=== PATIENT | female | born 1975 | race Caucasian/White ===

== ENCOUNTER → 2018-08-24 | Outpatient (CLI) | payer BC ==
[~2018-08-24] MED LIST: LEVAQUIN500 MG PO; TYLENOL WITH C1 EACH PO
--- NOTE | 2018-08-24 09:08 | Diagnostic Imaging Report ---
FLUOROSCOPIC BARIUM SWALLOW WITH UPPER GI HISTORY: GERD AGRICULTURAL ENGINEERING TEACHER: Rosemarie More MD Comparison: None. Procedure: Double contrast barium swallow and upper GI fluoroscopic exam was performed using thick and thin oral barium and effervescent crystals. Radiation Exposure: Fluoroscopy Time: 1 minute Radiation dose: 14.2 mGy DISCUSSION: ESOPHAGUS: Motility: Within normal limits. Unremarkable. Mucosa: Unremarkable. Distensibility: Normal. GASTROESOPHAGEAL JUNCTION: Small hiatal hernia. GASTROESOPHAGEAL REFLUX: Severe spontaneous inducible gastroesophageal reflux above the level of the aortic arch. STOMACH: Normally distensible and demonstrates normal contours and mucosal pattern. DUODENUM/PROXIMAL SMALL BOWEL: Unremarkable in appearance. IMPRESSION: Severe spontaneous gastroesophageal reflux. Small hiatal hernia. Signed by: Dr. Rosemarie More MD on 08/24/2018 9:04 AM
--- NOTE | 2018-08-24 09:08 | Diagnostic Imaging Report ---
FLUOROSCOPIC BARIUM SWALLOW WITH UPPER GI HISTORY: GERD HYDROGEN PLANT OPERATIONS MANAGER: Rosemarie More MD Comparison: None. Procedure: Double contrast barium swallow and upper GI fluoroscopic exam was performed using thick and thin oral barium and effervescent crystals. Radiation Exposure: Fluoroscopy Time: 1 minute Radiation dose: 14.2 mGy DISCUSSION: ESOPHAGUS: Motility: Within normal limits. Unremarkable. Mucosa: Unremarkable. Distensibility: Normal. GASTROESOPHAGEAL JUNCTION: Small hiatal hernia. GASTROESOPHAGEAL REFLUX: Severe spontaneous inducible gastroesophageal reflux above the level of the aortic arch. STOMACH: Normally distensible and demonstrates normal contours and mucosal pattern. DUODENUM/PROXIMAL SMALL BOWEL: Unremarkable in appearance. IMPRESSION: Severe spontaneous gastroesophageal reflux. Small hiatal hernia. Signed by: Dr. Rosemarie More MD on 08/24/2018 9:04 AM
== END ==
LOC: DX 07:28
PROVIDERS: ATTEND Surgery
DX: K21.9 Gastro-esophageal reflux disease without esophagitis (principal); K44.9 Diaphragmatic hernia without obstruction or gangrene
CPT/HCPCS: 74220; 74246

== ENCOUNTER 2018-10-11 07:06 | Inpatient (IN) | payer BC ==
[2018-10-09 16:30] LABS: BASOPHILS % 0.2 % (0.0-1.0); EOSINOPHILS # (AUTO) 0.1 (0.0-0.4); EOSINOPHILS % 0.9 % (0.0-6.0); HEMATOCRIT 39.3 % (34.2-44.1); HEMOGLOBIN 13.2 g/dL (12.0-16.0); LYMPHOCYTES # (AUTO) 2.8 (1.0-3.2); LYMPHOCYTES % 33.6 % (18.0-39.1); MEAN CORPUSCULAR HEMOGLOBIN 30.4 pg (28-32); MEAN CORPUSCULAR HGB CONC 33.6 g/dL (31-35); MEAN CORPUSCULAR VOLUME 90.6 fL (81-99); MONOCYTES # (AUTO) 0.5 (0.2-0.8); MONOCYTES % 6.2 % (4.4-11.3); NEUTROPHILS % 58.7 % (38.7-80.0); PLATELET COUNT 285 x10e3/uL (140-360); RED BLOOD COUNT 4.34 x10e6/uL (3.6-5.1); RED CELL DISTRIBUTION WIDTH 12.5 % (11.7-14.4)
[2018-10-09 17:06] LABS: ALANINE AMINOTRANSFERASE 8 IU/L (0-55); ALBUMIN 3.6 g/dL (3.5-5.0); ALKALINE PHOSPHATASE 45 IU/L (40-150); ANION GAP 11.1 mmol/L (8-16); BLOOD UREA NITROGEN 16 mg/dL (7-26); BUN/CREATININE RATIO 21 (6-25); CALCIUM 8.4 mg/dL (8.4-10.2); CARBON DIOXIDE 23 mmol/L (22-29); CHLORIDE 108 mmol/L (98-107); CREATININE, SERUM 0.77 mg/dL (0.57-1.11); EST GLOMERULAR FILTRATION RATE > 60 ML/MIN (60-); GLUCOSE 99 mg/dL (74-118); POTASSIUM 4.1 mmol/L (3.5-5.1); SODIUM 138 mmol/L (136-145)
[~2018-10-11] VITALS: Ht 157.5 cm; Wt 61.2 kg
[~2018-10-11 07:06] MED LIST changes: +PANTOPRAZOLE SO40 MG PO
--- OUTSIDE RECORDS SUMMARY | 2018-10-11 07:07 | XMS REPORT ---
Author Author [facility] Address Unknown Phone Unavailable Care Team Providers Care Apparel Manager Name Role Phone Silver LARSEN Unavailable Unavailable Problems This patient has no known problems. Allergies, Adverse Reactions, Alerts This patient has no known allergies or adverse reactions. Medications This patient has no known medications. Results Test Description Test Time Test Comments Text Results Atomic Results Result Comments BARIUM SWALLOW 2018-08-24 08:44:00 [place] [address] Patient Name: ONEYDA PERRY MR #: [id number] : 1975 Age/Sex: 43/F Req #: [id number] [facility] Physician: Ordered by: EMMY LARSEN MD Report #: [id number] Location: DX Room/Bed: Procedure: [id number] DX/BARIUM SWALLOW Exam Date: 08/24/18 Exam Time: 0815 REPORT STATUS: Signed FLUOROSCOPIC BARIUM SWALLOW WITH UPPER GI HISTORY: GERD FINAL ASSEMBLY INSPECTOR: Gabe Daigle MD Comparison: None. Procedure: Double contrast barium swallow and upper GI fluoroscopic exam was performed using thick and thin oral barium and effervescent crystals. Radiation Exposure: Fluoroscopy Time: 1 minute Radiation dose: 14.2 mGy DISCUSSION: ESOPHAGUS: Motility: Within normal limits. Unremarkable. Mucosa: Unremarkable. Distensibility: Normal. GASTROESOPHAGEAL JUNCTION: Small hiatal hernia. GASTROESOPHAGEAL REFLUX: Severe spontaneous inducible gastroesophageal reflux above the level of the aortic arch. STOMACH: Normally distensible and demonstrates normal contours and mucosal pattern. DUODENUM/PROXIMAL SMALL BOWEL: Unremarkable in appearance. IMPRESSION: Severe spontaneous gastroesophageal reflux. Small hiatal hernia. Signed by: Dr. Gabe Daigle MD on 08/24/2018 9:04 AM Dictated By: GABE DAIGLE MD 3 Transcribed By: SUE on 08/24/18903 COPY TO: EMMY LARSEN MD UPPER GI W/AIR CONTR 2018-08-24 08:44:00 [place] [address] Patient Name: ONEYDA PERRY MR #: [id number] : 1975 Age/Sex: 43/F Req #: [id number] Adm Physician: Ordered by: EMMY LARSEN MD Report #: [id number] Location: DX Room/Bed: Procedure: [id number] DX/UPPER GI W/AIR CONTR Exam Date: 08/24/18 Exam Time: 0815 REPORT STATUS: Signed FLUOROSCOPIC BARIUM SWALLOW WITH UPPER GI HISTORY: GERD FINAL ASSEMBLY INSPECTOR: Gabe Daigle MD Comparison: None. Procedure: Double contrast barium swallow and upper GI fluoroscopic exam was performed using thick and thin oral barium and effervescent crystals. Radiation Exposure: Fluoroscopy Time: 1 minute Radiation dose: 14.2 mGy DISCUSSION: ESOPHAGUS: Motility: Within normal limits. Unremarkable. Mucosa: Unremarkable. Distensibility: Normal. GASTROESOPHAGEAL JUNCTION: Small hiatal hernia. GASTROESOPHAGEAL REFLUX: Severe spontaneous inducible gastroesophageal reflux above the level of the aortic arch. STOMACH: Normally distensible and demonstrates normal contours and mucosal pattern. DUODENUM/PROXIMAL SMALL BOWEL: Unremarkable in appearance. IMPRESSION: Severe spontaneous gastroesophageal reflux. Small hiatal hernia. Signed by: Dr. Gabe Daigle MD on 08/24/2018 9:04 AM Dictated By: GABE DAIGLE MD 3 COPY TO: EMMY LARSEN MD
[2018-10-11] MEDS ORDERED: BUPIVACAINE 0.25%/EPI 30ML SDV INJ ONE (11:05)
[2018-10-11] MEDS ORDERED: ACETAMINOPHEN 1000 MG/100 ML IV PRN (13:30)
[2018-10-11] MEDS: SODIUM CHLORIDE 0.9% 250ML IRRIG IR SCH ×3 (13:30→21:04)
[2018-10-11] MEDS ORDERED: PROMETHAZINE HCL (IM) 25 MG/ML VIAL IV PRN (13:30)
[2018-10-11] MEDS ORDERED: HYDROMORPHONE 1MG/1ML INJ IV PRN (13:30)
[2018-10-11] MEDS ORDERED: FENTANYL CITRATE/PF 100MCG/2 ML INJ ONE ×2 (13:56→18:19)
[2018-10-11] MEDS ORDERED: PROMETHAZINE 12.5MG/ NACL 0.9% 50 ML IV PRN (14:00)
[2018-10-11] MEDS ORDERED: ONDANSETRON HCL INJ 2MG/ML 2ML 2 MG/ML VIAL ONE ×2 (14:24→18:00)
[2018-10-11] MEDS ORDERED: METOCLOPRAMIDE HCL 10 MG/2ML VIAL ONE (14:24)
--- NOTE | 2018-10-11 15:19 | Operative Report ---
DATE OF PROCEDURE: 10/11/2018 SURGEON: Artemio Juan MD PREOPERATIVE DIAGNOSIS: Gastroesophageal reflux disease. POSTOPERATIVE DIAGNOSIS: Gastroesophageal reflux disease. OPERATION PERFORMED: Laparoscopic Shaheen fundoplication. AGILE SCRUM MASTER: Dr. Musa Juan and ANIRUDH Eller. ANESTHESIA: General. COMPLICATIONS: None. ESTIMATED BLOOD LOSS: 100 mL. DESCRIPTION OF PROCEDURE: With the patient lying in bed in the supine position under good general endotracheal anesthesia, the abdomen was prepped with Betadine solution and draped in the usual manner. A Veress needle was introduced into the left upper abdomen and pneumoperitoneum was established without any difficulty. An 11 mm trocar was placed in the left mid abdomen and a 10 mm videolaparoscope was placed into the intraabdominal cavity. Under direct vision, four 5 mm trocars were placed in the right and left subcostal regions. The liver was then retracted and laparoscopy revealed that the patient did not have any significant hiatal hernia. This was all just straight gastroesophageal reflux disease, so we decided to go ahead and proceed with Shaheen fundoplication. The peritoneum off the right crura was then slowly and carefully taken down and the esophagus was identified and preserved and was then circumferentially dissected. The left crura was similarly identified and circumferentially dissected all the way around. The short gastrics were then slowly and carefully taken down using the Harmonic Scalpel. The tip of the spleen was fused to the diaphragm and to the fundus of the stomach and this was a little bit more difficult to separate. There was some bleeding from one of the short gastrics, which explained all of the bleeding from the procedure and this was controlled with the Harmonic Scalpel. After this was done, the fundus of the stomach was totally freed up and the esophagus was totally freed up all the way around. Hemostasis was ascertained. The fundus of the stomach was then brought in retroesophageal fashion over to the right side without any tension whatsoever and then the Shaheen fundoplication was performed using interrupted sutures of 0 Ethibond, bringing one side of the fundus to the lower esophagus to the other side of the fundus of the stomach. This gave us a satisfactory Shaheen fundoplication, which was floppy with no tension whatsoever. The bougie that had been placed was removed and the NG tube was left in place. The whole area was thoroughly irrigated. Perfect hemostasis was ascertained. SurgiSeal was left in the area of the tip of the spleen that was stuck to the stomach, but there was no bleeding at this point. The pneumoperitoneum was then evacuated and all the trocars were removed under direct vision. The fascia was then closed with a [id number] of 0 Vicryl. All layers were infiltrated on the way out with solution of 0.25% Marcaine. Subcutaneous tissue was approximated with 3-0 Vicryl and the skin was closed with subcuticular 5-0 Vicryl. Benzoin, Steri-Strips and Band-Aids were applied. The sponge, lap, and needle count was correct. The patient tolerated the procedure well and returned to the recovery room in stable condition. MD HANK Beltran/ATIF /[id number]
[2018-10-11] MEDS ORDERED: HYDROMORPHONE 2MG/ML 2 MG/ML ML ONE (16:32)
[2018-10-11 18:00] VITALS: BP 138/68
[2018-10-11] MEDS ORDERED: PROPOFOL IV EMULSION 10 MG/ML 20 ML VIAL ONE (18:00)
[2018-10-11] MEDS ORDERED: NEOSTIGMINE 5 MG/5ML SYR ONE (18:00)
[2018-10-11] MEDS ORDERED: SUCCINYLCHOLINE 200 MG/10 ML SYR ONE (18:00)
[2018-10-11] MEDS ORDERED: DEXAMETHASONE SOD PHOS INJ 4 MG/ML VIAL ONE (18:00)
[2018-10-11] MEDS ORDERED: ACETAMINOPHEN 1000 MG/100 ML IV ONE (18:00)
[2018-10-11] MEDS ORDERED: ROCURONIUM BROMIDE 10 MG/ML 5ML VIAL ONE (18:00)
[2018-10-11] MEDS ORDERED: LIDOCAINE HCL 2% LOCAL INJ 5 ML SDV VIAL INJ ONE (18:00)
[2018-10-11] MEDS ORDERED: GLYCOPYRROLATE INJ 1MG/ 5 ML SYR ONE (18:00)
[2018-10-11] MEDS ORDERED: FAMOTIDINE 20 MG/2 ML VIAL IV ONE (18:00)
[2018-10-11] MEDS ORDERED: SEVOFLURANE INHAL SOLN 250 ML PEN BTL ONE (18:00)
[2018-10-11] MEDS: DEXTROSE 5%/LACTATED RINGERS 1,000 ML IV SCH (18:13)
[2018-10-11] MEDS: PANTOPRAZOLE 40 MG 10ML VIAL IV SCH (18:13)
[2018-10-11] MEDS ORDERED: MIDAZOLAM HCL 2 MG/2 ML VIAL ONE (18:19)
[2018-10-11 19:24] VITALS: BP 138/68
[2018-10-11 19:45] VITALS: BP 138/68
--- NOTE | 2018-10-11 19:45 | NUR ---
Bedside shift by patient. RN performed comprehensive assessment on patient. Patient is alert and oriented x3 with VS WNL. Patient reported no pain and no nausea. RN educated the patient the available medications for pain and nausea. Verbalized understanding.
[2018-10-11 20:00] VITALS: BP 140/69
[2018-10-11] MEDS: ONDANSETRON HCL INJ 2MG/ML 2ML 2 MG/ML VIAL IV PRN (21:04)
[2018-10-12] VITALS (7 sets, daily range): BP systolic 90–120; BP diastolic 53–68
[2018-10-12] MEDS: DEXTROSE 5%/LACTATED RINGERS 1,000 ML IV SCH ×3 (00:48→19:02)
[2018-10-12] MEDS: SODIUM CHLORIDE 0.9% 250ML IRRIG IR SCH ×3 (00:48→09:33)
[2018-10-12 06:17] LABS: BASOPHILS % 0.2 % (0.0-1.0); HEMATOCRIT 34.2 % (34.2-44.1); HEMOGLOBIN 11.8 g/dL (12.0-16.0); LYMPHOCYTES % 12.2 % (18.0-39.1); MEAN CORPUSCULAR HEMOGLOBIN 30.8 pg (28-32); MEAN CORPUSCULAR HGB CONC 34.5 g/dL (31-35); MEAN CORPUSCULAR VOLUME 89.3 fL (81-99); MONOCYTES # (AUTO) 1.2 (0.2-0.8); NEUTROPHILS # (AUTO) 13.2 (2.1-6.9); NEUTROPHILS % 80.1 % (38.7-80.0); PLATELET COUNT 285 x10e3/uL (140-360); RED BLOOD COUNT 3.83 x10e6/uL (3.6-5.1); RED CELL DISTRIBUTION WIDTH 12.5 % (11.7-14.4)
[2018-10-12 06:37] LABS: ANION GAP 9.4 mmol/L (8-16); BLOOD UREA NITROGEN 7 mg/dL (7-26); BUN/CREATININE RATIO 10 (6-25); CALCIUM 8.4 mg/dL (8.4-10.2); CARBON DIOXIDE 23 mmol/L (22-29); CHLORIDE 107 mmol/L (98-107); CREATININE, SERUM 0.68 mg/dL (0.57-1.11); EST GLOMERULAR FILTRATION RATE > 60 ML/MIN (60-); GLUCOSE 137 mg/dL (74-118); POTASSIUM 3.4 mmol/L (3.5-5.1); SODIUM 136 mmol/L (136-145)
[2018-10-12] MEDS: HYDROMORPHONE 2MG/ML 2 MG/ML ML IV PRN ×2 (09:39→19:02)
[2018-10-12] MEDS: ONDANSETRON HCL INJ 2MG/ML 2ML 2 MG/ML VIAL IV PRN ×2 (09:39→19:02)
--- NOTE | 2018-10-12 09:45 | NUR ---
ASSISTED PT TO SIT IN CHAIR AT THIS TIME. AT BEDSIDE.
--- NOTE | 2018-10-12 10:56 | NUR ---
WOOD D/C AT THIS TIME.
--- NOTE | 2018-10-12 12:59 | NUR ---
PT VOIDED 100 ML AT THIS TIME.
[2018-10-12] MEDS: PANTOPRAZOLE 40 MG 10ML VIAL IV SCH (13:50)
--- NOTE | 2018-10-12 19:00 | NUR ---
patient received awake, alert, lying quietly in bed. patient c/o abd pain 01/01. patient to be medicated for pain by day nurse. trochar sites to abd c,d,i. ivf continue to infuse without difficulty. pm assessment complete. patient instructed to call for assistance when needed.
[2018-10-13] VITALS: BP 102/55
[2018-10-13] MEDS: DEXTROSE 5%/LACTATED RINGERS 1,000 ML IV SCH (03:50)
[2018-10-13 04:00] VITALS: BP 102/53
[2018-10-13 06:37] LABS: BASOPHILS % 0.1 % (0.0-1.0); EOSINOPHILS % 0.3 % (0.0-6.0); HEMATOCRIT 32.2 % (34.2-44.1); HEMOGLOBIN 10.9 g/dL (12.0-16.0); LYMPHOCYTES # (AUTO) 2.3 (1.0-3.2); LYMPHOCYTES % 19.1 % (18.0-39.1); MEAN CORPUSCULAR HEMOGLOBIN 31.1 pg (28-32); MEAN CORPUSCULAR HGB CONC 33.9 g/dL (31-35); MEAN CORPUSCULAR VOLUME 91.7 fL (81-99); MONOCYTES % 8.7 % (4.4-11.3); NEUTROPHILS # (AUTO) 8.4 (2.1-6.9); NEUTROPHILS % 71.2 % (38.7-80.0); PLATELET COUNT 258 x10e3/uL (140-360); RED BLOOD COUNT 3.51 x10e6/uL (3.6-5.1); RED CELL DISTRIBUTION WIDTH 12.8 % (11.7-14.4)
[2018-10-13 06:59] LABS: ANION GAP 8.5 mmol/L (8-16); BLOOD UREA NITROGEN 5 mg/dL (7-26); BUN/CREATININE RATIO 7 (6-25); CARBON DIOXIDE 27 mmol/L (22-29); CHLORIDE 106 mmol/L (98-107); CREATININE, SERUM 0.68 mg/dL (0.57-1.11); EST GLOMERULAR FILTRATION RATE > 60 ML/MIN (60-); GLUCOSE 115 mg/dL (74-118); POTASSIUM 3.5 mmol/L (3.5-5.1); SODIUM 138 mmol/L (136-145)
--- NOTE | 2018-10-13 07:28 | NUR ---
Received patient and walking rounds complete. Patient asleep at this time, no signs of distress. Bed in lowest position, wheels locked, side rails up x2, call light in reach. Will continue to monitor.
--- NOTE | 2018-10-13 09:00 | NUR ---
Patient A/O x3, even respirations on RA. Bowel sounds active, skin intact, no edema. 5 trocar sites on abdomen intact. Right AC 20 gauge IV with D5LR @ 100 cc/hr. Patient is ambulatory with standby assist. Clear liquid diet at this time. Pain medication PRN for abdominal pain. at bedside, call light in reach, will continue to monitor.
[2018-10-13 09:09] VITALS: BP 112/69
[2018-10-13] MEDS: HYDROMORPHONE 2MG/ML 2 MG/ML ML IV PRN (10:17)
[2018-10-13] MEDS ORDERED: HYDROCODONE/APAP 7.5MG-325MG 1 EA TAB PO PRN (11:00)
[2018-10-13] MEDS: ONDANSETRON HCL INJ 2MG/ML 2ML 2 MG/ML VIAL IV PRN (11:47)
[2018-10-13 12:25] VITALS: BP 119/69
[2018-10-13 14:02] VITALS: BP 119/69
[2018-10-13] MEDS: PANTOPRAZOLE 40 MG 10ML VIAL IV SCH (15:15)
[2018-10-13] MEDS ORDERED: TYLENOL WITH C1 EACH PO (16:14)
--- NOTE | 2018-10-13 16:24 | NUR ---
Removed patients IV. Catheter tip intact and pressure dressing applied.
--- NOTE | 2018-10-13 16:35 | NUR ---
Patient discharged from facility. Patient gathered all personal belongings, discharge paperwork, and follow up information. Left unit in wheelchair and went home via private auto. No signs of distress when leaving facility.
[2018-10-13 16:39] VITALS: BP 127/65
== END 2018-10-13 16:35 | disposition home or self-care (01) | DRG 328 ==
LOC: OR 07:06 → PACU V 13:23 → MED/SURG 17:44
PROVIDERS: ADMIT Surgery; ATTEND Surgery
PROC: 0DV44ZZ Restriction of Esophagogastric Junction, Percutaneous Endoscopic Approach (ICD-10-PCS; principal; 2018-10-11 11:06)
DX: K21.9 Gastro-esophageal reflux disease without esophagitis (principal)
CPT/HCPCS: 36415; 80048; 80053; 81025; 85025; 93005; C1766; J1100; J2001; J2250; J2405; J2550; J2765